=== PATIENT | female | born 1965 | race Caucasian/White ===

== ENCOUNTER 2019-10-04 08:20 | Outpatient (CLI) | payer OTHER, SELFPAY ==
--- NOTE | ~2019-10-04 | MM_ITS ---
EXAMINATION: MM diagnostic domonique BI w stephany HISTORY: Bilateral new breast lumps TECHNIQUE: ML, MLO and cc 3-D tomosynthesis images of both breasts were performed and synthetic 2-D i mages were generated. CAD analysis was submitted and interpreted. COMPARISON: 05/19/2019, 03/22/2018 and 11/04/2016bilateral digital screening mammogram examinations BREAST PARENCHYMAL COMPOSITION: There are scattered areas of fibroglandular density. FINDINGS: Stable bilateral intramammary lymph nodes are noted, not significantly changed since previo . No suspicious mass or architectural distortion, malignant calcification, skin thickening or retraction or significant new or developing density is detected. IMPRESSION: 1. No mammographic evidence of malignancy 2. Routine annual mammographic screening is recommended. BI-RADS Category 2: Benign finding(s). Reviewed, dictated and finalized at location A. 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
== END 2019-10-04 08:21 ==
PROVIDERS: PCP Nurse Practitioner; Visit Provider Obstetrics & Gynecology Gynecology
DX: N63.10 Unspecified lump in the right breast, unspecified quadrant (principal); N63.20 Unspecified lump in the left breast, unspecified quadrant
CPT/HCPCS: 77062; 77066; G0279

== ENCOUNTER 2020-12-02 14:27 | Outpatient (CLI) | payer OTHER, SELFPAY ==
--- NOTE | 2020-12-02 14:30 | ECG_ITS ---
Measurements Intervals [place] Rate: 88 P: -7 NM: 148 QRS: 22 QRSD: 88 T: 8 QT: 329 QTc: 398 Interpretive Statements SINUS RHYTHM DELAYED PRECORDIAL R/S TRANSITION INFERIOR INFARCT, AGE INDETERMINATE BASELINE ARTIFACT- I, II, III, AVL, AVF ABNORMAL ECG Electronically Signed On 12-02-2020 15:10:57 CDT by Aric Maza D.O.
[2020-12-02 15:30] LABS: Anion Gap 5 mmol/L (8-16); Blood Urea Nitrogen 23 mg/dL (7-17); Calcium 9.7 mg/dL (8.4-10.2); Carbon Dioxide 32 mmol/L (22-30); Chloride 100 mmol/L (98-107); Estimated Glomerular Filt Rate > 60; Glucose 114 mg/dL (65-105); Potassium 3.6 mmol/L (3.4-5.0); Sodium 137 mmol/L (137-145)
== END 2020-12-02 14:28 | disposition home or self-care (01) ==
LOC: ANHSURGERY 14:32
PROVIDERS: Anesthesiology; PCP Nurse Practitioner Family; Visit Provider Obstetrics & Gynecology Gynecology
DX: E78.5 Hyperlipidemia, unspecified (principal); I10 Essential (primary) hypertension; Z79.899 Other long term (current) drug therapy; Z01.818 Encounter for other preprocedural examination
CPT/HCPCS: 36415; 80048; 93005

== ENCOUNTER → 2020-12-06 01:52 | Outpatient (CLI) | payer OTHER, SELFPAY ==
[2020-12-06 19:40] LABS: SARS-CoV-2 RNA PCR Negative
== END ==
PROVIDERS: Visit Provider Obstetrics & Gynecology Gynecology
DX: Z01.812 Encounter for preprocedural laboratory examination (principal); Z20.822 Contact with and (suspected) exposure to COVID-19
CPT/HCPCS: C9803; U0003; U0005

== ENCOUNTER 2020-12-09 01:20 | Day surgery (SDC) | payer OTHER, SELFPAY ==
[2020-11-22 13:04] VITALS: BMI 52.7
[2020-12-09 06:23] VITALS: BP 124/51; PULSE 102; RESP 18; TEMP 36.3; O2SAT 97
[2020-12-09] MEDS: ACETAMINOPHEN 500 MG TABLET 1000 MG PO (06:36)
--- NOTE | 2020-12-09 07:19 | WPDHPUPDATE1 ---
History and Physical Update Update Date/Time: 12/09/20 07:19 History and Physical has been reviewed, including an updated exam of the patient. There are NO changes in the patient's condition. Risks, benefits, and alternatives have been discussed and questions answered. Patient agrees to proceed with procedure.
--- NOTE | 2020-12-09 07:19 | PM.HPGS ---
History of Present Illness History of Present Illness Consent: Risks, benefits, and alternatives have been discussed and questions answered. Patient agrees to proceed with procedure. Chief complaint: abnormal uterine bleeding Narrative: Ronit Gooden is a 55 year old female with episode of heavy prolonged bleeding. Patient has had an endometrial ablation in 2014. She has had light short cycle since that time. They have become more irregular since she has become tim menopausal. Last cycle prior to the October bleed was January of 2020. It is recommended to proceed with evaluation due to the heavy prolonged cycle. Risks of infection, bleeding, and perforation are reviewed. Possibility of not being able to enter the cavity due to prior ablation is reviewed. Possible pathology is discussed. Patient states understanding and agrees to proceed. Review of Systems Review of Systems: Narrative: not repeated day of surgery; patient states no changes in status PMFSH Past Medical History Medical History (Updated 12/09/20 @ 07:25 by Kami Darling MD) Depression Fibromyalgia HTN (hypertension) Hypercholesteremia Menorrhagia (normal spontaneous vaginal delivery) Sleep apnea Surgical History Surgical History (Updated 12/09/20 @ 07:23 by Kami Darling MD) S/P endometrial ablation S/P knee surgery S/P LEEP S/P tubal ligation Family History Family History (Updated 03/20/16 @ 23:21 by DOCTOR UNKNOWN) Mother Family history of rheumatoid arthritis Sibling Family history of cardiac disorder Patient's brother is in good health Father Carcinoma of colon Other Cerebrovascular accident Hypertension Social History Social History Smoking packs per day: 0.5 Smoking cigarettes per day: 10.0 Years smoked: 20 Smoking pack-years: 10.00 Smoking status: Former smoker Smoking end date: 08/23/11 Alcohol intake: current Alcohol use details: 1 EVERY COUPLE MONTHS Substance use: never Substance use type: does not use Living arrangements: with family Spiritual care concerns: No Meds Home Medications and Allergies Home Medications Medication Instructions Recorded Confirmed Type buspirone 5 mg PO BID 11/22/20 12/09/20 History cholecalciferol (vitamin D3) 50 mcg PO DAILY 11/22/20 12/09/20 History [Vitamin D3] duloxetine 90 mg PO DAILY 11/22/20 12/09/20 History folic acid 1 mg PO DAILY 11/22/20 12/09/20 History hydrochlorothiazide 25 mg PO DAILY 11/22/20 12/09/20 History lisinopril 20 mg PO DAILY 11/22/20 12/09/20 History meloxicam 15 mg PO DAILY 11/22/20 12/09/20 History simvastatin 5 mg PO HS 11/22/20 12/09/20 History Allergies Allergy/AdvReac Type Severity Reaction Status Date / Time meperidine Allergy Unknown Itching Verified 12/09/20 06:54 Vital Signs Vital Signs - 24 hr 12/09/20 06:23 Temperature 97.3 F L Pulse Rate 102 H Respiratory Rate 18 Blood Pressure 124/51 L Pulse Oximetry 97 Exam Narrative: Exam Narrative: BMI 53 Const: General: comfortable and no acute distress Chest: Chest palpation & inspection: normal inspection of the chest Breast/axilla palpation: normal palpation of the breasts Resp: Effort & Inspection: normal respiratory effort Auscultation: clear to auscultation bilaterally Cardio: Rate: regular rate Rhythm: regular rhythm GI: GI Palp: No abdominal tenderness and Yes Soft to palpation Rectal Exam: normal sphincter tone and No tenderness : External Female Exam: normal external appearance Speculum Exam - Vagina: normal appearance of the vagina Speculum Exam - Cervix: normal appearance of the cervix Bimanual exam- vagina & uterus: normal bimanual exam Bimanual Exam- Adnexa, other: normal adnexae Assessment and Plan Assessment and plan (1) Menorrhagia: Code(s): N92.0 - Excessive and frequent menstruation with regular cycle Status: Inactive Assessment and Plan: plan to proceed with hystero
[2020-12-09] MEDS: LACTATED RINGERS 1,000 ML 30 ML IV CONT (07:40)
--- NOTE | 2020-12-09 07:42 | WPDANESEPPF ---
Anes - Initial Pre Proc Eval Procedure: Operation Date: 12/09/20 08:15 Proposed Procedures p Hysteroscopy Dilation and Curettage - Kami Darling MD Date/Time: 12/09/20 07:42 Surgeon: Kami Darling MD Pre Op Diagnosis: abnormal uterine bleeding Patient Data Age: 55 Gender: F Height: 5 ft Weight: 122.1 kg Last Vital Signs Temp 36.3 C L 12/09/20 06:23 Pulse 102 H 12/09/20 06:23 Resp 18 12/09/20 06:23 BP 124/51 L 12/09/20 06:23 Pulse Ox 97 12/09/20 06:23 Allergies Allergy/AdvReac Type Severity Reaction Status Date / Time meperidine Allergy Unknown Itching Verified 12/09/20 06:54 Home Medications Medication Instructions Recorded Confirmed Type buspirone 5 mg PO BID 11/22/20 12/09/20 History cholecalciferol (vitamin D3) 50 mcg PO DAILY 11/22/20 12/09/20 History [Vitamin D3] duloxetine 90 mg PO DAILY 11/22/20 12/09/20 History folic acid 1 mg PO DAILY 11/22/20 12/09/20 History hydrochlorothiazide 25 mg PO DAILY 11/22/20 12/09/20 History lisinopril 20 mg PO DAILY 11/22/20 12/09/20 History meloxicam 15 mg PO DAILY 11/22/20 12/09/20 History simvastatin 5 mg PO HS 11/22/20 12/09/20 History Patient hx anesthesia problems: none Family hx anesthesia problems: none PMFSH Past Medical History Medical History Depression Fibromyalgia HTN (hypertension) Hypercholesteremia Menorrhagia (normal spontaneous vaginal delivery) Sleep apnea Surgical History Surgical History S/P endometrial ablation S/P knee surgery S/P LEEP S/P tubal ligation Family History Family History Mother Family history of rheumatoid arthritis Sibling Family history of cardiac disorder Patient's brother is in good health Father Carcinoma of colon Other Cerebrovascular accident Hypertension Social History Social History Smoking packs per day: 0.5 Smoking cigarettes per day: 10.0 Years smoked: 20 Smoking pack-years: 10.00 Smoking status: Former smoker Smoking end date: 08/23/11 Alcohol intake: current Alcohol use details: 1 EVERY COUPLE MONTHS Substance use: never Substance use type: does not use Living arrangements: with family Spiritual care concerns: No Anes - Eval Final PreProcedure Day of Procedure 12/09/20 07:42 Patient weight: morbidly obese Heart: regular rate and rhythm Lungs: clear to auscultation Airway: Mallampati scale class II Neurological: alert and oriented Last oral intake: >/= 8 hours ASA classification: III Emergent: no Anesthetic plan: proceed Anesthesia type and monitoring: general GIVS and standard monitoring Informed Consent: The patient's anesthetic plan and its attendant risks and benefits were discussed with the patient/family/POA. Questions were solicited and answers provided to the satisfaction of the patient/family/POA.
--- NOTE | 2020-12-09 08:43 | P.OP_ITS ---
Procedure Note - Detailed Date of procedure: 12/09/20 Pre-op diagnosis: abnormal uterine bleeding Post-op diagnosis: same Procedure performed: D&C hysteroscopy Description of procedure: The patient was taken to the operating room and placed under anesthesia in the dorsal lithotomy position. She was prepped and draped in the usual sterile fashion. Brandon speculum was placed in the vagina and the cervix was grasped on the anterior lip with a tenaculum. The uterus is sounded to 7cm. The cervix is serially dilated with Hegar to an 8. The diagnostic hysteroscope was placed with the stated findings. The hysteroscope was removed and a medium sharp curette used to curette the endometrium until a good uterine cry is noted in all areas. Minimal materials obtained consistent with the scarred and atrophic appearance. All instruments are removed. Sponge, needle, and instrument counts are correct per the OR staff. Patient is awakened from anesthesia and taken to recovery in stable condition. Anesthesia: MAC and local Surgeon: Kami Darling MD Estimated blood loss (mL): 5 Drains: No Packing: No Pathology: yes (Endometrial curettings) Complications: No immediate complications Condition: stable Disposition: PACU Findings: Uterus appears scarred and atrophic.
[2020-12-09 08:49] VITALS: BP 119/69; PULSE 78; RESP 16; O2SAT 96
[2020-12-09 09:10] VITALS: BP 117/70; PULSE 77; RESP 16; O2SAT 97
[2020-12-09 09:30] VITALS: BP 112/58; PULSE 70; RESP 16
== END 2020-12-09 09:44 | disposition home or self-care (01) ==
PROVIDERS: Visit Provider Obstetrics & Gynecology Gynecology
PROC: 0U5B8ZZ Destruction of Endometrium, Via Natural or Artificial Opening Endoscopic (ICD-10-PCS; CPT 58563; principal; 2020-12-09 08:15)
DX: N92.0 Excessive and frequent menstruation with regular cycle (principal); I10 Essential (primary) hypertension; E78.00 Pure hypercholesterolemia, unspecified; M79.7 Fibromyalgia; G47.30 Sleep apnea, unspecified; F32.9 Major depressive disorder, single episode, unspecified; Z87.891 Personal history of nicotine dependence; E66.01 Morbid (severe) obesity due to excess calories; Z68.43 Body mass index [BMI] 50.0-59.9, adult
CPT/HCPCS: 58558; 36415; 80048; 88305; 93005; A9270; C9803; J2250; J2704; J3010; J7030; J7120; U0003; U0005

== ENCOUNTER → 2023-02-04 15:48 | Outpatient (CLI) | payer OTHER, SELFPAY ==
--- NOTE | ~2023-02-04 | MM_ITS ---
EXAMINATION: MM screening domonique BI w stephany HISTORY: Screening mammogram TECHNIQUE: Craniocaudal and mediolateral oblique 3-D tomosynthesis images were obtained and synthetic 2-D images were generated. CAD analysis was submitted and interpreted. COMPARISON: October 04, 2019, May 19, 2019, March 22, 2018 bilateral screening mammogram examin ations BREAST PARENCHYMAL COMPOSITION: There are scattered areas of fibroglandular density. FINDINGS: Stable bilateral axillary tail and axillary lymph nodes. There is no evidence of suspicious mass, calcification, or architectural distortion to suggest malignancy in either breast. There has b een no suspicious interval change. IMPRESSION: 1. No mammographic evidence of malignancy. 2. Recommend routine screening mammography in one year. BI-RADS Category 1: Negative Reviewed, dictated and finalized at location A.
== END ==
PROVIDERS: PCP Nurse Practitioner; Visit Provider Nurse Practitioner
DX: Z12.31 Encounter for screening mammogram for malignant neoplasm of breast (principal)
CPT/HCPCS: 77063; 77067